=== PATIENT | male | born 1985 | race Caucasian/White ===

== ENCOUNTER 2022-01-10 19:48 | Emergency (ER) | payer BC, SELFPAY ==
[2022-01-10 19:52] VITALS: BP 140/81; PULSE 90; RESP 17; TEMP 36.6; O2SAT 96; BMI 62.1
[2022-01-10 20:43] LABS: Absolute Lymphocyte Count 1.47 X10^3/uL (0.83-4.51); Basophil# 0.02 X10^3/uL; Basophil% 0.2 % (0-1); Eosinophil# 0.04 X10^3/uL; Eosinophils% 0.4 % (0-5); Hematocrit 44.6 % (40-54); Hemoglobin 15.3 g/dL (13.0-16.5); Lymphocyte # 1.47 X10^3/ul (0.83-4.51); Lymphocyte % 14.4 % (19-41); Mean Corp Hgb Conc 34.3 g/dL (32-36); Mean Corpuscular Hgb 31.5 pg (27.0-32.0); Mean Platelet Vol. 10.2 fl (6.2-12.0); Monocyte# 0.64 X10^3/uL; Monocyte% 6.3 % (0-10); NRBC Flagged by Analyzer 0 % (0-5); Neutrophil # 8.03 X10^3/uL (2.7-7.7); Neutrophil % 78.3 % (47-70); Platelet Count 175 K/mm3 (150-450); RBC Distribution Width SD 40.7 fl (35.1-43.9); Red Blood Count 4.85 M/mm3 (4.6-6.2); White Blood Count 10.2 K/mm3 (4.4-11.0)
[2022-01-10] MEDS: levETIRAcetam IV 1,000 MG/100 ML BAG 400 MG IV (20:51)
[2022-01-10 20:55] VITALS: BP 130/73; PULSE 85; RESP 15; O2SAT 99
[2022-01-10 20:59] LABS: Anion Gap 9 (5-15); BUN 18 mg/dL (7-18); BUN/Creat Ratio 12.2 RATIO (10-20); Chloride 104 mmol/L (98-107); Creatinine, Serum 1.48 mg/dL (0.70-1.30); EST Glomerular Filtration Rate 56 mL/min (>60); Est Glom Filt Rate - Afr Amer 68 mL/min (>60); Estimated Creatinine Clearance 74.28 ml/min; Glucose 122 mg/dL (74-106); Potassium 3.5 mmol/L (3.5-5.1); Sodium Level 139 mmol/L (136-145)
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
[2022-01-10 21:32] VITALS: BP 122/66; PULSE 86; RESP 20; TEMP 37.1; O2SAT 99
[2022-01-10] MEDS: 0.9% Normal Saline 1,000 ML 999 ML IV (21:32)
== END 2022-01-10 22:13 | disposition home or self-care (01) ==
PROVIDERS: Emergency Provider Emergency Medicine; Visit Provider Emergency Medicine
DX: G40.509 Epileptic seizures related to external causes, not intractable, without status epilepticus (principal); R94.4 Abnormal results of kidney function studies
CPT/HCPCS: 80048; 85025; 96361; 96365; 99285; J7030; A4216

== ENCOUNTER 2023-03-14 18:02 | Emergency (ER) | payer BC, SELFPAY ==
[2023-03-14 18:03] VITALS: BP 158/63; PULSE 116; RESP 18; TEMP 36.9; O2SAT 95; BMI 29.7
[2023-03-14 18:18] VITALS: PULSE 107; RESP 30; O2SAT 95
--- NOTE | 2023-03-14 19:03 | EX.ED.DYSGE1 ---
HPI History of Present Illness Chief Complaint: Seizure Informant: patient, spouse/S.O. and family Narrative Narrative: Presents after a seizure. This patient is actually now awake and alert. He states he had his first seizure that they know of when he was in second grade. He was on Tegretol at the time. When he got into his teens he has not had another seizure so they weaned him off. When he was in college in [employer], he started to have what he describes as auras but no actual seizure activity. He was referred to a neurologist who placed him on Trileptal. He has now been placed on Keppra. His last seizure was about a year ago in December. At that time he had missed dosage of his Keppra. This is not something he normally does. He states he might have missed recently but he is not 100% sure either way. He also occasionally takes a preworkout drink that is [id number]. But he states he only uses half of a cup when the instructions say 2 cups. He is wondering if this might contribute to this also. But overall the patient takes excellent care of himself and is very careful about taking his medicines. He is really not having symptoms now. He had a tonic-clonic seizure that lasted about 2 or 3 minutes. He was postictal. But both his and his mother in the room and they say he is really acting very normally now. Patient is actually quite a good informant for details. [facility] Home Medications levetiracetam 500 mg tablet 8 mg PO DAILY 01/10/22 [History Last Taken Unknown] Allergy/AdvReac Type Severity Reaction Status Date / Time phenytoin [From Dilantin] Allergy Rash Verified 01/10/22 19:52 Social History Smoking Status: Never smoker ROS ROS ED Constitutional Constitutional ED: Denies fever(s) or subjective Eyes Eyes: Denies change in vision or diplopia ENT ENT ED: Denies rhinorrhea or sore throat Cardiovascular Cardiovascular: Denies chest pain or palpitations Respiratory/Chest Respiratory/Chest: Denies cough or dyspnea Gastrointestinal Gastrointestinal: Denies diarrhea, nausea or vomiting Genitourinary Genitourinary ED: Denies dysuria Musculoskeletal Musculoskeletal: Reports other Details: Patient does state that he has been having occasional mild muscle cramps recently that are a little different than normal. ; Denies arthralgias, back pain or neck pain Integumentary Denies rash Neurologic Neurologic: Reports other Details: Seizure as in history of present illness. ; Denies headache(s), paresthesias or weakness Endocrine Endocrinology: Denies polydipsia or polyuria Hematologic/Lymphatic Hematologic/Lymphatic: Denies easy bleeding or easy bruising Allergic/Immunologic Allergic/Immunologic ED: Denies urticaria EXAM Physical Exam Narrative Exam Narrative: General: Patient is awake alert appropriate. No acute distress. Very good informant. HEENT: He does have an abrasion to the right side of his tongue but no laceration. No other sign of trauma at all. Eyes: Pupils are normal at about 3 mm and reactive. No limitation of range of motion. No nystagmus. Neck is supple and nontender Lungs are clear bilaterally. Saturations normal at 95 to 97% on room air showing no hypoxia on the monitor. Heart is regular. Current rate is about 90. I hear no murmur. Pulses are normal x4. Abdomen is soft completely nontender Spine shows no tenderness cervical thoracic or lumbar. Extremities show no pain. No pain with shoulder motion. Neurologically he is awake alert appropriate very good informant for details. The only thing he is not sure about is if he might have missed dosages of meds this morning. He states he normally does not but he just cannot recall right now. It is possible that he is still little postictal and does not recall or that he may be had missed meds. Const Vital Signs: 03/14/23 18:03 03/14/23 18:18 03/14/23 21:27 Temperature 98.5 F Temperature Source Temporal Pulse Rate 116 H 107 H 80 Respiratory Rate 18 30 H 19 H Blood Pressure 158/63 H 127/76 H Blood Pressure Mean 94 93 Pulse Ox 95 95 97 Oxygen Delivery Method Room Air Room Air Room Air MDM MDM MDM Narrative Medical decision making narrative: We talked with patient and his family. We explained that it is not uncommon to have an occasional breakthrough seizure even when on appropriate medications. It is possible he missed meds but that will happen on occasion. With the seizure and some mild intermittent cramping recently we will check electrolytes. We discussed the possibility of a CT scan but he is not having headache or any focal deficits and he only had 1 seizure and is back to normal. We do not feel that this is needed since he has had seizures since the second grade. Patient's electrolytes show changes consistent with having seizure. He appears though he has been recently acidotic. He changes of bicarb and anion gap even slightly low sodium. I do not think this low sodium is contributing. Creatinine is a little bit high as was glucose. He was given IV fluids. He feels markedly better. His heart rate is down to about 65. He took his meds here. He has had no further issues. I think he is appropriate to go home. I did send off a Keppra level but this will not come back today. He will follow-up with his neurologist. Lab Data Attestation: I reviewed the patient's lab results. Labs: Laboratory Results - last 24 hr 03/14/23 18:23 Sodium 131 L Potassium 3.5 Chloride 99 Carbon Dioxide 14.0 L Anion Gap 18 H BUN 15 Creatinine 1.75 H Estim Creat Clear Calc 62.20 Est GFR (MDRD) Af Amer 56 L Est GFR (MDRD) Non-Af 46 L BUN/Creatinine Ratio 8.6 L Glucose 139 H Calcium 8.6 Discharge Plan Triage Chief Complaint: Seizure ED Provider: Bryan Gardner Dx/Rx/DC Orders Clinical Impression: Breakthrough seizure Instructions: Discharge Instructions for Epilepsy Prescriptions: No Action levetiracetam 500 mg tablet 8 mg PO DAILY Rx Instructions: 4 IN AM AND 4 IN pm Primary Care Provider: Lilibeth Rao Referrals: Lilibeth Rao MD [Primary Care Provider] - Activity Restrictions/Additional Instructions: Follow-up with your neurologist. Disposition Disposition: Home, Self Care
[2023-03-14] MEDS: 0.9% Normal Saline (1000mL) 1,000 ML 1000 ML IV (19:13)
[2023-03-14 19:28] LABS: Anion Gap 18 (5-15); BUN 15 mg/dL (7-18); BUN/Creat Ratio 8.6 RATIO (10-20); Calcium,Total 8.6 mg/dL (8.5-10.1); Chloride 99 mmol/L (98-107); Creatinine, Serum 1.75 mg/dL (0.70-1.30); EST Glomerular Filtration Rate 46 mL/min (>60); Est Glom Filt Rate - Afr Amer 56 mL/min (>60); Glucose 139 mg/dL (74-106); Potassium 3.5 mmol/L (3.5-5.1); Sodium Level 131 mmol/L (136-145)
[2023-03-14 21:27] VITALS: BP 127/76; PULSE 80; RESP 19; O2SAT 97
[2023-03-14 22:30] VITALS: BP 129/66; PULSE 69; RESP 16; O2SAT 98
[2023-03-19 10:09] LABS: KEPPRA (LEVETIRACETAM) 21.6 ug/mL (10.0-40.0)
== END 2023-03-14 22:45 | disposition home or self-care (01) ==
PROVIDERS: Emergency Provider Emergency Medicine; Visit Provider Emergency Medicine
DX: R56.9 Unspecified convulsions (principal)
CPT/HCPCS: 80048; 80177; 96360; 99284; J7030; A4216